=== PATIENT | female | born 1990 ===

== ENCOUNTER 2023-08-13 01:28 | Emergency (ER) | payer OTHER, SELFPAY ==
--- NOTE | ~2023-08-13 | US_ITS ---
EXAMINATION: US VENOUS ULTRASOUND WITH DOPPLER LOWER EXTREMITY, BILATERAL CLINICAL INFORMATION: Bilateral lower extremity swelling. COMPARISON: None available. TECHNIQUE: Ultrasound of the deep veins is performed from the hip to the calf with compression sonography and color and pulse Doppler assessment. Spectral analysis with color-flow imaging is performed. FINDINGS: RIGHT: There is normal venous compression and respiratory variation and augmented flow. The visualized common femoral vein, superficial femoral vein, profunda femoral vein, popliteal vein, and the trifurcation region shows no evidence of deep venous thrombosis. Enlarged right inguinal lymph node measures 2.5 x 0.5 x 1.1 cm. LEFT: There is normal venous compression and respiratory variation and augmented flow. The visualized common femoral vein, superficial femoral vein, profunda femoral vein, popliteal vein, and the trifurcation region shows no evidence of deep venous thrombosis. Enlarged left inguinal lymph node measures 3.1 x 0.5 x 0.8 cm. If the patient's symptoms persist, followup ultrasound in 5 days 7 days might be of value to exclude proximal propagation from a non-visualized calf vein. US/US venous duplex LE BI IMPRESSION: No DVT demonstrated in the bilateral lower extremities.
--- NOTE | ~2023-08-13 | XR_ITS ---
EXAMINATION: XR CHEST CLINICAL INFORMATION: Fused edema COMPARISON: None available. TECHNIQUE: AP portable view of the chest was obtained. FINDINGS: No significant abnormality is noted involving the heart, lungs, mediastinum, bony thorax or soft tissues. XR/XR chest 1V IMPRESSION: No acute disease.
[2023-08-13 01:42] VITALS: BP 118/61; PULSE 84; RESP 16; TEMP 36.8; O2SAT 100; BMI 25.2
[2023-08-13 02:03] LABS: Basophils Percent Auto 0.8 % (0-2); Eosinophils Percent Auto 1.1 % (0-4); Hematocrit 27.7 % (37.0-47.0); Hemoglobin 9.7 g/dl (12.0-16.0); Imm Gran Abs Auto 0.03 X10*3/uL (0.00-0.03); Imm Gran Pct Auto 0.8 % (0.0-0.4); Lymphocytes Absolute Auto 1.3 X10*3/uL (1.2-4.9); Lymphocytes Percent Auto 33.9 % (20-40); MANUAL DIFF FLAG SCAN; Mean Corpuscular Hemoglobin 34.4 pg (27.0-33.0); Mean Corpuscular Volume 98.2 fL (80.0-98.0); Mean Platelet Volume 10.3 fL (9.4-12.3); Monocytes Absolute Auto 0.9 X10*3/uL (0.1-1.2); Monocytes Percent Auto 23.8 % (2-11); Neutrophils Absolute Auto 1.5 x10*3/uL (2.0-8.3); Neutrophils Percent Auto 39.6 % (45-73); Platelet Count 212 X10*3/uL (160-400); Red Blood Count 2.82 X10*6/uL (4.20-5.50); Red Cell Distribution Width 14.8 % (11.0-16.0); SCAN SMEAR FLAG 1; White Blood Count 3.8 X10*3/uL (4.8-10.8)
[2023-08-13 02:13] LABS: D Dimer High Sensitivity 217 NG/ML
[2023-08-13 02:14] LABS: Anion Gap 13 (12-20); Blood Urea Nitrogen 6 mg/dL (9-16); Calcium 9.2 mg/dL (8.4-10.2); Carbon Dioxide 25 mmol/L (22-29); Chloride 108 mmol/L (96-108); Creatinine Clr Calc Pharmacy 105.3; Estimated Glomerular Filt Rate > 60; Glucose Random 91 mg/dL (60-115); Potassium 4.2 mmol/L (3.3-5.1); Sodium 142 mmol/L (135-145)
[2023-08-13 02:51] LABS: SLIDE REVIEW VERIFIED
[2023-08-13 03:10] LABS: UPreg QC Valid YES; Urine Pregnancy NEGATIVE (NEGATIVE)
[2023-08-13 03:12] LABS: Appearance Urine Cloudy; Color Urine Yellow; Glucose Urine UA Negative (Negative); Leukocyte Esterase Urine Negative (Negative); Nitrite Urine Negative (Negative); PH 5.5 (5.0-9.0); Urine Blood Negative (Negative); Urine Ketones Negative (Negative); Urine Protein Negative (Neg-Trace)
--- NOTE | 2023-08-13 03:27 | ED_ITS ---
HPI - Extremity Problem General Chief complaint: Extremity Problem Stated complaint: leg swelling post colonoscopy/endo Time Seen by Provider: 08/13/23 02:57 Source: patient Mode of arrival: ambulatory Limitations: no limitations History of Present Illness ED Provider: DR. Moscoso HPI Narrative: 33-year-old female s/p endoscopy on 08/05, patient started to notice increased swelling in bilateral lower extremities, bilateral hands, and face. No shortness of breath, no PND, no recent prolonged immobilization, no recent travel, no history of DVT. Related Data Allergies Allergy/AdvReac Type Severity Reaction Status Date / Time No Known Allergies Allergy Verified 08/13/23 01:45 Review of Systems 2 Review of Systems: All other systems are reviewed and are negative Constitutional: Reports as per HPI and Reports no additional constitutional complaints Eyes: Reports as per HPI and Reports no additional eye complaints Reports system reviewed and no additional complaints, except as documented Cardiovascular: Reports as per HPI and Reports no additional cardiovascular complaints Respiratory: Reports as per HPI and Reports no additional respiratory complaints Gastrointestinal: Reports as per HPI and Reports no additional gastrointestinal complaints Genitourinary: Reports no additional female genitourinary complaints Musculoskeletal: Reports no additional musculoskeletal complaints Skin/Breast: Reports system reviewed and no additional complaints, except as docu Psychiatric: Reports no additional psychiatric complaints Endocrine: Reports no additional endocrine complaints Hematologic/Lymphatic: Reports no additional hematologic/lymphatic complaints Allergic/Immunologic: Reports no additional allergic/immunologic complaints Reports system reviewed and no additional complaints, except as documented and Reports Abnormal speech present [facility] Social History Social History Advance Directives: No Advance Directives Information Provided: Yes Do you have a plan to hurt others: No Plan Physical Exam 2 Vital Signs: Vital Signs: Last Vital Signs Temp 98.4 F 08/13/23 04:58 Pulse 82 08/13/23 04:58 Resp 14 08/13/23 04:58 BP 102/52 L 08/13/23 04:58 Pulse Ox 96 08/13/23 04:58 O2 Del Method Room Air 08/13/23 04:58 BMI result Body Mass Index 25.2 Vital signs have been reviewed and appear to be correct. Blood pressure elevated. Heart rate normal. Respiratory rate normal. Temperature normal. Oxygen saturation normal. Appearance: Alert. Oriented X3. No acute distress. Head: Normal external exam. Normocephalic. Atraumatic. No Obrien signs noted. No raccoon eyes noted Eyes: PERRLA. EOMI. Conjunctiva and sclera normal. Eyelids normal. ENT: TM's Normal. Pharynx normal. Uvula midline. Moist mucous membranes. No trismus noted. No drooling noted. No muffled voice noted. Neck: Normal inspection. Neck supple. FROM. No adenopathy. Thyroid Normal. No meningeal signs. No neck mass noted. CVS: Normal heart rate and rhythm. Heart sound normal. No murmurs noted. Pulses normal throughout. Respiratory: No respiratory distress. Painless inspiration. Breath sounds normal. No wheezes/rales/rhonchi noted. Chest nontender. No accessory muscle usage noted or decreased air movement noted. Abdomen: Soft and nontender. Bowel sounds normal in all 4 quadrants. No distention noted. No organomegaly noted. No visible injury noted. Back: No CVA tenderness. Full range of motion noted. Skin: Skin warm and dry. Normal skin color. Normal skin turgor. No rashes/lesions/lacerations noted. Extremities: +1 bilateral lower extremity edema. Extremities exhibit normal range of motion. Extremities nontender. Neuro: Oriented X 3. Cranial nerve exam: II-XII are grossly intact No motor deficit. No sensory deficit. Reflexes normal. Course Reevaluation(s) Reevaluation #1: Bilateral lower extremity swelling after GI procedure, unremarkable labs except for mild anemia that has been stable and mild transaminitis. No abdominal pain, no rectal bleeding. Patient will get bilateral lower extremity ultrasounds signed out to the upcoming physician Time: 05:51 Medical Decision Making Differential Diagnosis Differential Diagnoses: The differential diagnosis associated with the presentation includes (DVT, severe anemia, CHF, electrolyte derangement, severe anemia, SRINIVASAN.) Admission/Observation Consideration of admission/observation: Escalation of care including admission/observation considered Lab Data MDM Lab Attestation statement: I reviewed the patient's lab results. 08/13/23 04:40 08/13/23 01:50 Labs: Lab Results 08/13/23 08/13/23 08/13/23 Range/Units 01:50 02:59 04:40 WBC 3.8 L 3.7 L (4.8-10.8) X10*3/uL RBC 2.82 L 2.78 L (4.20-5.50) X10*6/uL Hgb 9.7 L 9.5 L (12.0-16.0) g/dl Hct 27.7 L 26.9 L (37.0-47.0) % MCV 98.2 H 96.8 (80.0-98.0) fL MCH 34.4 H 34.2 H (27.0-33.0) pg MCHC 35.0 35.3 H (31.0-35.0) g/dl RDW 14.8 14.6 (11.0-16.0) % Plt Count 212 215 (160-400) X10*3/uL MPV 10.3 10.7 (9.4-12.3) fL Immature Gran % (Auto) 0.8 H 0.3 (0.0-0.4) % Neut % (Auto) 39.6 L 38.5 L (45-73) % Lymph % (Auto) 33.9 33.1 (20-40) % [place] % (Auto) 23.8 H 26.8 H (2-11) % Eos % (Auto) 1.1 0.8 (0-4) % Baso % (Auto) 0.8 0.5 (0-2) % Lymph # (Auto) 1.3 1.2 (1.2-4.9) X10*3/uL [place] # (Auto) 0.9 1.0 (0.1-1.2) X10*3/uL Eos # (Auto) 0.0 0.0 (0.0-0.4) X10*3/uL Baso # (Auto) 0.0 0.0 (0.0-0.2) X10*3/uL Abs Immat Gran (auto) 0.03 0.01 (0.00-0.03) X10*3/uL Absolute Neuts (auto) 1.5 L 1.4 L (2.0-8.3) x10*3/uL Absolute Nucleated RBC 0.000 0.000 (0.0-0.012) X10*3/uL Nucleated RBC % (auto) 0.0 0.0 (0.0-0.2) /100WBC Smear Tech's Comments VERIFIED D-Dimer High Sensitivty 217 NG/ML Sodium 142 (135-145) mmol/L Potassium 4.2 (3.3-5.1) mmol/L Chloride 108 (96-108) mmol/L Carbon Dioxide 25 (22-29) mmol/L Anion Gap 13 (12-20) BUN 6 L (9-16) mg/dL Creatinine 0.72 (0.5-1.4) mg/dL Estim Creat Clear Calc 105.3 Estimated GFR > 60 Random Glucose 91 (60-115) mg/dL Calcium 9.2 (8.4-10.2) mg/dL Total Bilirubin 0.4 (0.0-1.0) mg/dL Direct Bilirubin 0.3 (0.0-0.5) mg/dL AST 72 H (5-31) U/L ALT 60 H (0-31) U/L Alkaline Phosphatase 107 (39-117) U/L Total Protein 6.3 L (6.5-8.0) g/dL Albumin 3.6 (3.5-5.0) g/dL Urine Color Yellow Urine Appearance Cloudy Urine pH 5.5 (5.0-9.0) Ur Specific Brant 1.010 (1.005-1.025) Urine Protein Negative (Neg-Trace) mg/dL Urine Glucose (UA) Negative (Negative) mg/dL Urine Ketones Negative (Negative) mg/dL Urine Blood Negative (Negative) Urine Nitrite Negative (Negative) Ur Leukocyte Esterase Negative (Negative) Urine Test NEGATIVE (NEGATIVE) Discharge Plan Discharge Clinical Impression: Lower extremity edema Patient Disposition: Still a Patient Print Language: Belarusian
[2023-08-13 03:44] LABS: Alanine Aminotransferase 60 U/L (0-31); Albumin Level 3.6 g/dL (3.5-5.0); Alkaline Phosphatase 107 U/L (39-117); Aspartate Amino Transferase 72 U/L (5-31); Bilirubin Direct 0.3 mg/dL (0.0-0.5); Bilirubin Total 0.4 mg/dL (0.0-1.0); Total Protein 6.3 g/dL (6.5-8.0)
[2023-08-13 04:54] LABS: Basophils Percent Auto 0.5 % (0-2); Eosinophils Percent Auto 0.8 % (0-4); Hematocrit 26.9 % (37.0-47.0); Hemoglobin 9.5 g/dl (12.0-16.0); Imm Gran Abs Auto 0.01 X10*3/uL (0.00-0.03); Imm Gran Pct Auto 0.3 % (0.0-0.4); Lymphocytes Absolute Auto 1.2 X10*3/uL (1.2-4.9); Lymphocytes Percent Auto 33.1 % (20-40); MANUAL DIFF FLAG SCAN; Mean Corpuscular HGB Conc 35.3 g/dl (31.0-35.0); Mean Corpuscular Hemoglobin 34.2 pg (27.0-33.0); Mean Corpuscular Volume 96.8 fL (80.0-98.0); Mean Platelet Volume 10.7 fL (9.4-12.3); Monocytes Percent Auto 26.8 % (2-11); Neutrophils Absolute Auto 1.4 x10*3/uL (2.0-8.3); Neutrophils Percent Auto 38.5 % (45-73); Platelet Count 215 X10*3/uL (160-400); Red Blood Count 2.78 X10*6/uL (4.20-5.50); Red Cell Distribution Width 14.6 % (11.0-16.0); SCAN SMEAR FLAG 1; White Blood Count 3.7 X10*3/uL (4.8-10.8)
[2023-08-13 04:58] VITALS: BP 102/52; PULSE 82; RESP 14; TEMP 36.9; O2SAT 96
[2023-08-13 06:42] VITALS: BP 107/60; PULSE 83; RESP 18; TEMP 36.7; O2SAT 98
[2023-08-13 08:08] VITALS: BP 112/77; PULSE 87; RESP 18; TEMP 36.9; O2SAT 98
[2023-08-13 10:33] VITALS: BP 115/71; PULSE 82; RESP 18; TEMP 36.8; O2SAT 99
[2023-08-13 10:57] LABS: Iron 61 mcg/dL (30-160); Percent Iron Saturation 30 % (15-50); Total Iron Binding Capacity 203 mcg/dL (228-428); Unsaturated Iron Binding 142 ug/dL
[2023-08-13 10:59] VITALS: BP 115/71; PULSE 82; RESP 18; TEMP 36.8; O2SAT 99
[2023-08-13 11:18] LABS: Iron 61 mcg/dL (30-160); Percent Iron Saturation 31 % (15-50); Total Iron Binding Capacity 200 mcg/dL (228-428); Unsaturated Iron Binding 139 ug/dL
[2023-08-13 11:53] LABS: Folate 5.4 ng/mL (> or = 4.0); Vitamin B12 964 pg/mL (200-900)
== END 2023-08-13 10:59 | disposition home or self-care (01) ==
PROVIDERS: Emergency Medicine; Emergency Provider Emergency Medicine Emergency Medical Services; PCP Family Medicine
DX: R60.9 Edema, unspecified (principal); M79.89 Other specified soft tissue disorders; R74.01 Elevation of levels of liver transaminase levels; D64.9 Anemia, unspecified
CPT/HCPCS: 36415; 71045; 80048; 80076; 81003; 81025; 82607; 82746; 83540; 85025; 85379; 93970; 99283; 99284